=== PATIENT | female | born 1985 | race African-American/Black ===

== ENCOUNTER 2020-05-06 20:26 | Emergency (ER) | payer OTHER ==
--- NOTE | 2020-05-06 20:35 | PDOC ---
Rapid Medical Evaluation Time Seen by Provider: 05/06/20 20:30 Medical Evaluation: Allergies Allergy/AdvReac Type Severity Reaction Status Date / Time No Known Allergies Allergy Verified 07/05/16 19:23 05/06/20 20:33 34 year old female no pmhx sent from urgent care for PE r/o complaining of SOB and chest pain for 2 days worsening on exertion. Pt denies sick contact fever chills syncope dizziness EKG from urgent care WNL On BC nonsmoker no recent travel PE mild respiratory distress pausing btwn sentences for breaths Chest CTA RRR VSS Plan Covid swab Labs XR EKG Pt to precede to ED for further eval and management at the discretion of the ED provider
[2020-05-06 20:41] VITALS: BP 114/74; PULSE 85; TEMP 98.7; BMI 32.5
--- NOTE | 2020-05-06 21:35 | PDOC ---
History of Present Illness - General Chief Complaint: Shortness of Breath Stated Complaint: SOB Time Seen by Provider: 05/06/20 20:30 - History of Present Illness Initial Comments: The pt is a 34F w/ no reported PMH who presents for evaluation of approximately 2 weeks of HERRERA and fatigue. The pt denies fevers/chills, chest pain, cough, N/V, abdominal pain, dysuria, hematuria, or blood in her stool. Endorses OCP use, LMP end of March She denies history of DVT/PE, recent immobility, recent surgery, or history of cancer. Pt has not had these symptoms before. 05/06/20 21:33 Past History - Medical History Allergies/Adverse Reactions: Allergies Allergy/AdvReac Type Severity Reaction Status Date / Time No Known Allergies Allergy Verified 05/06/20 20:33 Home Medications: Ambulatory Orders NK [No Known Home Medication] 07/05/16 - Reproductive History (#): 3 Para: 3 Cervical CA: No Dysfunctional Uterine Bleeding: No Ectopic : No Endometrial CA: No Polycystic Ovaries: No Tubal Ligation: No - Immunization History Immunization Up to Date: Yes - Psycho-Social/Smoking History Smoking History: Never smoked Have you smoked in the past 12 months: No - Substance Abuse Hx (Audit-C & DAST Scrn) How often the patient has a drink containing alcohol: Never Score: In Men: 4 or > Positive; In Women: 3 or > Positive: 0 Screen Result (Pos requires Nsg. Audit-10AR): Negative Review of Systems - Review of Systems Able to Perform ROS?: Yes Comments:: GENERAL/CONSTITUTIONAL: No fever or chills. No weakness HEAD, EYES, EARS, NOSE AND THROAT: No change in vision. No change in hearing. No sore throat CARDIOVASCULAR: No chest pain RESPIRATORY: Denies cough, hemoptysis GASTROINTESTINAL: No nausea, vomiting, diarrhea or constipation GENITOURINARY: No dysuria, frequency, or change in urination MUSCULOSKELETAL: No joint or muscle swelling or pain. No neck or back pain SKIN: No rash NEUROLOGIC: No headache, vertigo, loss of consciousness, or change in strength/sensation ENDOCRINE: No increased thirst. No abnormal weight change HEMATOLOGIC/LYMPHATIC: No anemia, easy bleeding, or history of blood clots ALLERGIC/IMMUNOLOGIC: No hives or skin allergy 05/06/20 21:34 Is the patient limited Vietnamese proficient: No *Physical Exam - Vital Signs Last Vital Signs Temp Pulse Resp BP Pulse Ox 98.7 F 85 22 H 114/74 100 05/06/20 20:30 05/06/20 20:30 05/06/20 20:30 05/06/20 20:30 05/06/20 20:30 - Physical Exam GENERAL: Awake, alert, and oriented to person/place/time, in no acute distress HEAD: No signs of trauma, normocephalic, atraumatic EYES: PERRLA, EOMI, sclera anicteric, conjunctiva clear ENT: Hearing grossly normal, nares patent, oropharynx clear without exudates. Moist mucosa LUNGS: No distress, speaks in full sentences, clear to auscultation bilaterally HEART: Regular rate and rhythm, normal S1 and S2, no murmurs appreciated, peripheral pulses normal and equal bilaterally ABDOMEN: Soft, nontender, normoactive bowel sounds. No guarding, no rebound. No masses EXTREMITIES: Normal inspection, Normal range of motion, no edema. No clubbing or cyanosis NEUROLOGICAL: Cranial nerves II through XII grossly intact. Normal speech, normal gait, no focal sensorimotor deficits SKIN: Warm, Dry 05/06/20 21:35 ED Treatment Course - LABORATORY CBC & Chemistry Diagram: 05/06/20 21:35 05/06/20 21:35 Medical Decision Making - Medical Decision Making The pt is a 34F w/ no reported PMH who presents for evaluation of approximately 2 weeks of HERRERA and fatigue. ED Course CMP, CBC, Upreg, UA, D-dimer CXR ECG COVID swab 05/06/20 21:35 No leukocytosis No anemia D-dimer elevated Will obtain CTA chest to evaluate for PE 05/06/20 22:45 Lytes overall unremarkable No SIMEON LFTs unremarkable Trop I neg BNP wnl 05/06/20 23:27 ECG w/ NSR; HR 73; QTc 412; no axis deviation; no acute ischemic changes 05/07/20 00:06 CTA w/o acute pathology Likely due to viral syndrome Pt ambulating w/o dyspnea or increased WOB Plan for D/C w/ PCP f/u Discharge instructions and return precautions given Patient in agreement and verbalized understanding Dispo: Home 05/07/20 00:55 Discharge - Discharge Information Problems reviewed: Yes Clinical Impression/Diagnosis: SOB (shortness of breath) Condition: Stable Disposition: HOME - Admission No - Follow up/Referral Referrals: Fidelina Buitrago MD [Primary Care Provider] - - Patient Discharge Instructions Patient Printed Discharge Instructions: [facility]Coronavirus Instructions, [facility] COVID-19 Isolation Protocol Additional Instructions: You were seen in the Emergency Department for evaluation of shortness of breath. Your labs and imaging were unremarkable overall. Your symptoms may be due to COVID-19. Review the handouts provided at discharge. Follow up with your primary care provider within the next week. Return to the Emergency Department if you develop fevers/chills, worsening symptoms, chest pain, leg swelling, inability to tolerate activity, or any new/concerning symptoms. - Post Discharge Activity Work/Back to School Note: Back to Work
[2020-05-06 22:01] LABS: INR 0.92 (0.83-1.09); PROTHROMBIN TIME (PATIENT) 10.9 SEC (9.7-13.0)
[2020-05-06 22:19] LABS: BASO % 1.2 % (0-2.0); EOS % 1.3 % (0-4.5); HEMATOCRIT 35.5 % (32.4-45.2); LYMPH % 33.3 % (8-40); MCH 30.3 pg (25.7-33.7); MCHC 33.9 g/dl (32.0-36.0); MEAN CELL VOLUME 89.5 fl (80-96); MEAN PLT VOLUME 9.4 fl (7.5-11.1); MONO % 6.8 % (3.8-10.2); NEUT % 57.4 % (42.8-82.8); PLATELET COUNT 279 K/MM3 (134-434); RBC 3.96 M/mm3 (3.60-5.2); RDW 13.9 % (11.6-15.6); WHITE BLOOD COUNT 7.7 K/mm3 (4.0-10.0)
[2020-05-06 22:26] LABS: N-TERMINAL BNP 39.4 pg/ml (5-125)
[2020-05-06 22:45] LABS: EPI CELLS 13 /uL (0-25.1); HYALINE CASTS 0 /uL (0-3.1); URINE APPEARANCE CLEAR; URINE BACTERIA 524 /uL (0-1359); URINE BILIRUBIN NEGATIVE (NEGATIVE); URINE COLOR YELLOW; URINE GLUCOSE (UA) NEGATIVE (NEGATIVE); URINE KETONE NEGATIVE (NEGATIVE); URINE LEUK ESTERASE 1+ (NEGATIVE); URINE NITRITE NEGATIVE (NEGATIVE); URINE PROTEIN NEGATIVE (NEGATIVE); URINE RBC 3 /uL (0-23.9); URINE WBC 16 /uL (0-25.8)
--- NOTE | 2020-05-06 23:01 | PDOC ---
Documentation entered by Fozia Huerta SCRIBE, acting as scribe for Carri Rees MD. Carri Rees MD: This documentation has been prepared by the Bradley mcknight Nirvannie, SCRIBE, under my direction and personally reviewed by me in its entirety. I confirm that the documentation accurately reflects all work, treatment, procedures, and medical decision making performed by me. Attending Attestation - Resident Resident Name: AliciaameenaTristan - ED Attending Attestation I have performed the following: I have examined & evaluated the patient, The case was reviewed & discussed with the resident, I agree w/resident's findings & plan, Exceptions are as noted - HPI HPI: 05/06/20 22:15 The patient is a 34 year old female with no significant past medical history who presents to the ED with 2 weeks of generalized fatigue and dyspnea upon exertion. Patient was evaluated in urgent care prior to arrival at which time she was advised to report to the ED for further evaluation. Patient is on OCP. She denies any recent long distance travel, surgery, or history of DVT/PE. Denies chest pain or cough. Allergies: NKDA LMP: End of March. Primary Care Physician: Dr. Buitrago - Physicial Exam PE: 05/06/20 22:57 General: well appearing, NAD HEENT: NCAT Chest: CTAB, good air entry, no wheezes rales or rhonchi, speaking in full sentences, no accessory muscle use CVS: + s1 s2, RRR Extremities: warm and well perfused, no LE edema - Medical Decision Making 05/06/20 22:58 34 yo F with report of SOB and fatigue, O2 sat 100% RA and not tachycardic, unremarkable physical exam, low suspicion for PE however cannot PERC out as patient is on OCP. Possible viral syndrome vs. PNA vs. pleurisy vs. msk pain. Plan: -labs -as patient low risk for PE will check D-dimer and if elevated will get CT PE protocol -cxr -EKG -pt. refused COVID testing -reassess, if labs imaging and EKG without any concerning findings will d/c with return precautions and recommend PMD f/u This clinical encounter is taking place during a federal and state health care emergency attributable to the novel [place] Virus pandemic. The [place] of the Department of Health and Human Services has declared, pursuant to the Public Health Service Act 319F-3 (42 U.S.C. 247d-6d), that a covered persons activities related to medical countermeasures against COVID-19 will be immune from liability under Federal and State law. 05/07/20 01:31 labs and imaging reviewed. CT negative for PE. Patient now agreeable to COVID swab and has been sent. Patient well appearing, not hypoxic and ambulatory in ED without any evidence of respiratory difficulty or complaints. Will d/c with return precautions, recommend PMD f/u. Discharge - Discharge Information Problems reviewed: Yes Clinical Impression/Diagnosis: SOB (shortness of breath) - Follow up/Referral Referrals: Fidelina Buitrago MD [Primary Care Provider] - - Patient Discharge Instructions Patient Printed Discharge Instructions: [facility]-Coronavirus Instructions, [facility] COVID-19 Isolation Protocol Additional Instructions: You were seen in the Emergency Department for evaluation of shortness of breath. Your labs and imaging were unremarkable overall. Your symptoms may be due to COVID-19. Review the handouts provided at discharge. Follow up with your primary care provider within the next week. Return to the Emergency Department if you develop fevers/chills, worsening symptoms, chest pain, leg swelling, inability to tolerate activity, or any new/concerning symptoms. - Post Discharge Activity Work/Back to School Note: Back to Work
[2020-05-06 23:02] LABS: ALBUMIN 3.6 g/dl (3.4-5.0); ALK PHOS 59 U/L (45-117); ANION GAP 6 MMOL/L (8-16); BILIRUBIN,TOTAL 0.4 mg/dL (0.2-1); BLOOD UREA NITROGEN 8.6 mg/dL (7-18); CHLORIDE 106 mmol/L (98-107); CO2 28 mmol/L (21-32); GLUCOSE,RANDOM 138 mg/dL (74-106); POTASSIUM 3.9 mmol/L (3.5-5.1); SGOT/AST 19 U/L (15-37); SGPT/ALT 19 U/L (13-61); SODIUM 139 mmol/L (136-145); TOT PROT 7.4 g/dl (6.4-8.2)
--- NOTE | 2020-05-07 11:48 | EKG ---
Test Reason : Blood Pressure : / mmHG Vent. Rate : 073 BPM Atrial Rate : 073 BPM P-R Int : 160 ms QRS Dur : 076 ms QT Int : 374 ms P-R-T Axes : 063 002 049 degrees QTc Int : 412 ms NORMAL SINUS RHYTHM LOW VOLTAGE QRS BORDERLINE ECG NO PREVIOUS ECGS AVAILABLE Confirmed by AGUSTO BARR MD ([id number]) on 05/07/2020 11:47:44 AM Referred By: Confirmed By:AGUSTO BARR MD
== END 2020-05-07 01:45 | disposition home or self-care (01) ==
LOC: JER 20:26
DX: R06.02 Shortness of breath (principal)
CPT/HCPCS: 36415; 71046-TC-FY; 71275-TC; 80053; 81003; 82550; 83880; 84484; 84703; 85025; 85379; 85610; 93005; 93010; 99285-25; U0003

== ENCOUNTER 2022-02-09 17:59 | Emergency (ER) | payer OTHER ==
[2022-02-09 18:16] VITALS: BP 109/69; PULSE 92; TEMP 98.3; BMI 33.3
[2022-02-09 20:20] LABS: URINE APPEARANCE CLEAR; URINE BILIRUBIN NEGATIVE (NEGATIVE); URINE COLOR YELLOW; URINE GLUCOSE (UA) NEGATIVE (NEGATIVE); URINE KETONE TRACE (NEGATIVE); URINE LEUK ESTERASE NEGATIVE (NEGATIVE); URINE NITRITE NEGATIVE (NEGATIVE); URINE PROTEIN NEGATIVE (NEGATIVE)
[2022-02-09 20:28] LABS: HCG,QUALITATIVE URINE Positive
== END 2022-02-09 22:48 | disposition home or self-care (01) ==
LOC: JER 17:59
DX: O20.0 Threatened abortion (principal); Z3A.12 12 weeks gestation of pregnancy
CPT/HCPCS: 76801-TC; 81003; 84703; 87086; 99284-25